=== PATIENT | female | born 1990 | race Caucasian/White ===

== ENCOUNTER 2022-09-26 12:11 | Emergency (ER) | payer MEDICAID, SELFPAY ==
[2022-09-26 12:12] VITALS: BP 144/93; PULSE 52; RESP 18; TEMP 36.2; O2SAT 99; BMI 40.3
--- NOTE | 2022-09-26 12:29 | US_ITS ---
STUDY: FIRST TRIMESTER OBSTETRICAL ULTRASOUND REASON FOR EXAM: Female, 32 years old early preg, bleeding, pain LMP: 07/24/2022. TECHNIQUE: Transvaginal TECHNICAL QUALITY: Adequate. PRIOR ULTRASOUND: None. FINDINGS: There is no demonstrated intrauterine gestational sac. There is no demonstrated yolk sac. The placenta is non-visualized. There is no demonstrated embryo ( pole). The estimated gestation age (EGA) by LMP is 9 weeks, 1 days. The estimated date of delivery (RUTH) by LMP is 04/30/2023. The uterus measures 10.4 cm x 6.1 cm by 5.1 cm. The endometrium is thickened measuring 17.8 mm in full thickness. There is no demonstrated uterine fibroid. The cervix is closed. The right ovary measures 3.3 cm x 1.9 cm x 2.0 cm. There is no right ovarian cyst. There is no visualized right adnexal mass or complex lesion. The left ovary measures 2.2 cm x 1.5 cm x 1.5 cm. There is no left ovarian cyst. There is no visualized left adnexal mass or complex lesion. There is no fluid in the cul de sac. US/Transvaginal w/Preg US IMPRESSION: No intrauterine gestational sac is seen. Thickened endometrium. Serial beta hCG follow-up recommended. Electronically Signed: Glenroy Costello MD at 14:48 EST ,
--- NOTE | 2022-09-26 12:40 | EDS_ITS ---
HPI HPI - Female History of Present Illness Chief Complaint: Vag Bld, Preg Informant: patient Pain Pain: Positive for Pelvic Pain Onset: Yesterday Context: Gradual Onset Quality: Positive for Cramping Location: Suprapubic Current Severity: Gone Maximum Severity: Mild Bleeding Issue: Positive for Vaginal bleeding Onset: Yesterday Context: Gradual Onset Current Severity: Mild Maximum Severity: Similar to period Associated Symptoms Last known menstrual period: 07/24/2022 Test: Positive and Urine Sexually: Positive for Active P: 0 Narrative Narrative: Patient is about 8 weeks by dates, she had a positive urine test at a nurses office. Yesterday she started having bleeding and cramping, the bleeding became pretty significant but has tapered off along with the cramping this morning. Unknown for sure what her blood type is but she thinks it is O-. PFSH PFSH Medical History no medical history no medical history Allergy/AdvReac Type Severity Reaction Status Date / Time No Known Allergies Allergy Verified 09/26/22 12:14 Social History Smoking Status: Never smoker ROS ROS ED Constitutional Constitutional ED: Denies chills or fever(s) Eyes Eyes: Denies change in vision or diplopia ENT ENT ED: Denies rhinorrhea or sore throat Cardiovascular Cardiovascular: Denies chest pain or palpitations Respiratory/Chest Respiratory/Chest: Denies cough or dyspnea Gastrointestinal Gastrointestinal: Reports abdominal pain; Denies diarrhea, nausea or vomiting Genitourinary Genitourinary ED: Reports as per HPI and vaginal bleeding; Denies dysuria or hematuria Musculoskeletal Musculoskeletal: Denies back pain or neck pain Integumentary Denies abscess or rash Neurologic Neurologic: Denies headache(s), paresthesias or weakness Psychiatric Psychiatric: Denies anxiety or suicidal thoughts EXAM Physical Exam Const Vital Signs: 09/26/22 12:12 Temperature 97.2 F L Temperature Source Temporal Pulse Rate 52 L Respiratory Rate 18 Blood Pressure 144/93 H Blood Pressure Mean 110 Pulse Ox 99 Oxygen Delivery Method Room Air Positive well nourished and well developed General Appearance ED: well developed and NAD HEENT Reports moist mucous membranes normocephalic and atraumatic Eyes PERRL and EOMs intact bilaterally Neck full ROM and supple Resp normal respiratory effort and clear to auscultation bilaterally Cardio regular rate, regular rhythm and no murmurs GI non-tender and non-distended Auscultation: normoactive bowel sounds Palpation: soft Speculum Exam - Vagina: vaginal bleeding Back/Spine no CVA tenderness General Back: other FROM Extremity normal to inspection General Extremety ED: Negative for edema, pulses abnormal or tenderness General Extremity: Negative for edema or pulses abnormal Neuro oriented x3, CN's II-XII intact bilaterally and no sensory deficits noted Sensorium / Orientation: awake and alert Motor Exam: strength 5/5 throughout Skin no rashes or lesions noted and no wounds MDM MDM MDM Narrative Medical decision making narrative: I did a bedside ultrasound, I do not see any evidence of an intrauterine , therefore she was sent for a transvaginal while we obtained an ABO Rh, as well as a quantitative hCG. Her hormone level is 2840, her blood type is O positive, and ultrasound transvaginal obtained, shows no obvious IUP, and no obvious signs of an ectopic. My interpretation of the US agrees with that of the radiologist. Discussed with the OB on-call for unassigned, Dr. Iram Zamorano, since the patient does not have an TRANSPORTATION INSPECTOR. She agrees with sending the patient home for a 48-hour repeat quantitative hCG level which I will set up for her, and close outpatient follow-up in the office afterwards. Since the patient is seen on Thursday, we will have her obtain the blood draw on Thursday, and follow-up during office hours afterwards. Lab Data Attestation: I reviewed the patient's lab results. Labs: Laboratory Results - last 24 hr 09/26/22 09/26/22 09/26/22 12:35 12:35 12:35 WBC 14.2 H RBC 4.83 Hgb 12.9 Hct 40.1 MCV 83.0 MCH 26.7 L MCHC 32.2 RDW Std Deviation 46.7 H RDW Coeff of Enoch 15.4 H Plt Count 429 MPV 10.0 Immature Gran % (Auto) 0.400 Neut % (Auto) 74.9 H Lymph % (Auto) 18.4 L Bowman % (Auto) 4.7 Eos % (Auto) 1.0 Baso % (Auto) 0.6 Absolute Neuts (auto) 10.7 H Absolute Lymphs (auto) 2.61 Nucleated RBC % 0 HCG, Quant 2840 H Blood Type O POSITIVE Radiography Diagnostic Testing: Clinical Impression(s) from Imaging Studies Obstetrics Ultrasound 09/26/22 12:29 IMPRESSION: No intrauterine gestational sac is seen. Thickened endometrium. Serial beta hCG follow-up recommended. Electronically Signed: Glenroy Costello MD at 14:48 EST Reading Location ID and State: [facility] / [place] , Service support , Discharge Plan Triage Chief Complaint: Vag Bld, Preg ED Provider: Cezar Lim Dx/Rx/DC Orders Clinical Impression: Early stage of , Bleeding in early Instructions: Bleeding During Early Other Ambulatory Orders: hCG Titer Quant., Serum (Routine) Timeframe: [id number] Facility: [facility] - Location: Laboratory Ordered By: Dr. Cezar Lim Primary Care Provider: Care Physician,No Primary Referrals: Josie Zamorano DO [Med Staff - Active Staff] - (Next week as soon as available, call for appointment date and time) NOT,DEFINED [Non-Staff] - Disposition Disposition: Home, Self Care
[2022-09-26 12:47] LABS: Absolute Lymphocyte Count 2.61 X10^3/uL (0.83-4.51); Absolute Neutrophil Count 10.7 X10^3/uL (2.0-7.7); Basophil# 0.08 X10^3/uL; Basophil% 0.6 % (0-1); Eosinophil# 0.14 X10^3/uL; Hematocrit 40.1 % (37-47); Hemoglobin 12.9 g/dL (12.0-15.0); Lymphocyte # 2.61 X10^3/ul (0.83-4.51); Lymphocyte % 18.4 % (19-41); Mean Corp Hgb Conc 32.2 g/dL (32-36); Mean Corpuscular Hgb 26.7 pg (27.0-32.0); Monocyte# 0.67 X10^3/uL; Monocyte% 4.7 % (0-10); NRBC Flagged by Analyzer 0 % (0-5); Neutrophil # 10.66 X10^3/uL (2.7-7.7); Neutrophil % 74.9 % (47-70); Platelet Count 429 K/mm3 (150-450); RBC Distribution Width CV 15.4 % (11.6-14.6); RBC Distribution Width SD 46.7 fl (35.1-43.9); Red Blood Count 4.83 M/mm3 (4.2-5.4); White Blood Count 14.2 K/mm3 (4.4-11.0)
[2022-09-26 13:38] LABS: hCG Titer Quant., Serum 2840 mIU/mL (1-3)
--- NOTE | 2022-09-26 14:30 | CM.ED ---
Social Work Note Referral Source: Case Find Referral Reason: No Insurance SW met with patient and patient's guest and introduced herself and role as [facility] Test Bore Helper. SW requested permission to speak to patient with guest present, patient agreed. SW inquired about patient's current insurance needs. Patient reports she has already applied and is waiting for a response regarding benefits she qualifies for. Patient reports no other needs at this time. SW remains available if needs arise. Kimber Jones PREVENTIVE MEDICINE SPECIALIST, SHIRA
== END 2022-09-26 16:00 | disposition home or self-care (01) ==
PROVIDERS: Emergency Provider Emergency Medicine; Visit Provider Emergency Medicine
DX: O20.9 Hemorrhage in early pregnancy, unspecified (principal); Z3A.08 8 weeks gestation of pregnancy; R10.2 Pelvic and perineal pain
CPT/HCPCS: 76817; 84702; 85025; 86900; 86901; 99283; A4216

== ENCOUNTER → 2022-10-01 | Outpatient (CLI) | payer MEDICAID, SELFPAY ==
[2022-10-01 11:37] LABS: hCG Titer Quant., Serum 205 mIU/mL (1-3)
== END | disposition home or self-care (01) ==
LOC: WOBLAB 10:42
PROVIDERS: Visit Provider Obstetrics & Gynecology
DX: O20.0 Threatened abortion (principal); Z3A.00 Weeks of gestation of pregnancy not specified
CPT/HCPCS: 36415; 84702

== ENCOUNTER 2023-04-01 18:56 | Emergency (ER) | payer MEDICAID, SELFPAY ==
[2023-04-01 18:57] VITALS: BP 180/95; PULSE 92; RESP 18; TEMP 35.6; O2SAT 99; BMI 40.4
--- NOTE | 2023-04-01 19:37 | RAD_ITS ---
STUDY: X-RAY CHEST REASON FOR EXAM: Female, 32 years old. Cough TECHNIQUE: PA and lateral views of the chest. COMPARISON: None. FINDINGS: The lungs are clear and expanded. There is no demonstrated pleural abnormality. Normal size heart. Normal mediastinum and chidi. Normal visualized pulmonary arteries. Normal visualized aortic arch and descending thoracic aorta. Normal visualized thoracic spine. Normal visualized ribs, clavicles, and shoulders. There is no demonstrated abnormality of the visualized soft tissue structures of the upper abdomen. RAD/Chest PA and Lateral IMPRESSION: Normal x-ray examination of the chest. Electronically Signed: Case Quinonez MD at 19:52 EDT ,
--- NOTE | 2023-04-01 19:38 | EX.ED.VIS.UR ---
HPI HPI - URI History of Present Illness Chief Complaint: Cough Narrative Narrative: 32-year-old female who denies significant past medical history presents with day 10 of upper respiratory infection type symptoms/viral syndrome. She states that over the last 10 days she developed nonproductive cough essentially, perhaps occasionally productive, shortness of breath, and rhinorrhea. She states she went to urgent care where they performed a COVID and influenza swabs which ended up being negative. She was placed on symptomatic treatment in the form of an albuterol inhaler, a few days of prednisone, and was told to take [id number] Mucinex to help dry up her mucus. She states that while she is taking these medications, she has not improved. She continues to have coughing with occasional sputum production and mild shortness of breath. ROS ROS ED ROS Narrative Constitutional: No fever, no chills. HEENT: No sore throat. No neck pain. No loss of vision. Positive nasal congestion and rhinorrhea. Cardiovascular: No chest pain. No palpitations. No pedal edema. Respiratory: Occasionally productive cough, mild shortness of breath. Abdominal: No abdominal pain. No nausea. No vomiting. Genitourinary: No dysuria. No hematuria. Musculoskeletal: No myalgias. No arthralgias. Neurologic: No headaches. No dizziness. No lightheadedness. Skin: No rash. No change in color. Psychiatric: No depression. No anxiety. [facility] Medical History (Updated 04/01/23 @ 20:34 by Mario Lieberman MD) Seasonal allergies Allergy/AdvReac Type Severity Reaction Status Date / Time No Known Allergies Allergy Verified 04/01/23 18:57 Social History Smoking Status: Never smoker EXAM Physical Exam Narrative Exam Narrative: Afebrile. Vital signs noted. HEENT: Normocephalic. Atraumatic. PERRL, EOMI. Neck soft and supple. No point tenderness or step off. Positive rhinorrhea and nasal congestion. Airway patent. No meningismus. Cardiovascular: Regular rate and rhythm. No murmurs, rubs, or gallops appreciated. Respiratory: No tachypnea. Occasional rhonchi with rare expiratory wheeze, coughs on examination. Gastrointestinal: Abdomen soft, nontender, with normoactive bowel sounds. No rebound or guarding. Neurological: Awake. Alert. Nonfocal, nonlateralizing. Skin: No rash. Normal color. No pallor. Musculoskeletal: No pedal edema. Full range of motion extremities. Const Vital Signs: 04/01/23 18:57 04/01/23 20:13 04/01/23 20:17 Temperature 96.1 F L Temperature Source Temporal Pulse Rate 92 84 Respiratory Rate 18 15 Respiratory Effort Normal Respiratory Depth Normal Respiratory Pattern Normal Blood Pressure 180/95 H Blood Pressure Mean 123 Pulse Ox 99 97 Oxygen Delivery Method Room Air Room Air Room Air MDM MDM MDM Narrative Medical decision making narrative: I reviewed the patient's prior ED visit and found a noncontributory. Her vital signs show her pulse ox to be 99% on room air and afebrile. I do not feel laboratory work is indicated. Concern would be for viral syndrome versus bronchitis versus pneumonia with consolidation. Why do not feel laboratory work is indicated I do feel that two-view chest x-ray should be obtained to help rule out pneumonia. Should she have a consolidation that I would consider placing her on antibiotics along with her symptomatic treatment that she is currently performing. X-rays obtained and 2 views and interpreted by myself independently as no evidence of pneumonia or pneumothorax. I do not feel antibiotics are indicated. I reviewed the radiology report which confirms my independent interpretation. At this point in time, I feel she be discharged safely home with follow-up with continued treatment that she received from the urgent care. Return instructions to the emergency department were reviewed. Disposition is discharged home in stable condition. She did have elevated blood pressure, but is asymptomatic. She is to keep an eye on this and follow-up with a primary care provider. History & Record Review Additional record(s) reviewed:: Prior ED visit (Noncontributory to current chief complaint.) Radiography Diagnostic Testing: Clinical Impression(s) from Imaging Studies Chest X-Ray 04/01/23 19:37 IMPRESSION: Normal x-ray examination of the chest. Electronically Signed: Case Quinonez MD at 19:52 EDT , Discharge Plan Triage Chief Complaint: Cough Other Complaint: Shortness of Breath ED Provider: Mario Lieberman Dx/Rx/DC Orders Clinical Impression: Acute viral syndrome, Bronchitis Instructions: ED Bronchitis, No Antibiotic (Adult), ED Viral Syndrome (Adult) Primary Care Provider: Care Physician,No Primary Referrals: Shailesh Dos Santos MD [Med Staff - Active Staff] - 1 Week if not improving Care Physician,No Primary [Primary Care Provider] - Activity Restrictions/Additional Instructions: Continue with the medications you were given from urgent care and the Mucinex [id number]. Disposition Disposition: Home, Self Care
[2023-04-01 20:17] VITALS: PULSE 84; RESP 15; O2SAT 97
[2023-04-01 20:33] VITALS: BP 143/91; O2SAT 96
== END 2023-04-01 20:45 | disposition home or self-care (01) ==
PROVIDERS: Emergency Provider Emergency Medicine; Visit Provider Emergency Medicine
DX: B34.9 Viral infection, unspecified (principal); J40 Bronchitis, not specified as acute or chronic
CPT/HCPCS: 71046; 99282